=== PATIENT | female | born 1990 | race African-American/Black ===

== ENCOUNTER 2024-03-20 13:16 | Emergency (ER) | payer OTHER, SELFPAY ==
[2024-03-20 13:17] VITALS: BP 111/84
[2024-03-20 13:54] VITALS: BMI 26.6
--- NOTE | 2024-03-20 14:02 | ED.GENMED ---
History of Present Illness
General
Chief Complaint: Fall
Time Seen by Provider: 03/20/24 13:29
History of Present Illness
History of Present Illness:
33-year-old female presents to the emergency department for evaluation of right muscular pain after a fall yesterday. States she was sitting in a chair at work when the chair suddenly broke, she fell onto her right side landing on her right hip and
knee. She was seen at [facility] yesterday where she had x-rays of the lumbar spine, right hip, right knee, and right elbow that were all unremarkable. She is reporting diffuse pain to all the after mentioned areas including the
thoracic back with frequent muscle spasms
Past History
Past History
ED Past Medical History: Other (Endometriosis, ectopic )
ED Past Surgical History: Gynecological (L fallopian tube removed ( tubel ),)
Social History
Tobacco: Non-smoker
Alcohol: Occasional
Drug: None
Personal: Other (fiancee)
Living: with family
Employment: Employed
Review of Systems
Review of Systems
Allergies reviewed?: Yes
All Other Systems: ROS reviewed and negative except as documented in HPI and ROS
Phy Exam
Physical Exam
Physical Exam:
GEN: Well appearing, NAD, WDWN
HEENT: Oral mucosa moist, no scleral icterus
Cardiac: Regular rate
Lung: No respiratory distress, no tachypnea
MSK: No gross deformity or injuries. The patient has widespread muscular tenderness to the cervical, thoracic, and lumbar paraspinous musculature. She has unrestricted range of motion of bilateral upper and lower extremities in all rodriguez of motion
Skin: Good color, no pallor or jaundice, no rashes
Neuro: AO x3, moves all extremities freely
Psych: Calm, cooperative
Course
Vital Signs
Initial and Last Documented VS:
Initial Vital Signs
Temp Pulse Resp BP Pulse Ox
98.2 F 79 18 111/84 100
03/20/24 13:17 03/20/24 13:17 03/20/24 13:17 03/20/24 13:17 03/20/24 13:17
Last Documented Vital Signs
Temp Pulse Resp BP Pulse Ox
98.0 F 81 18 118/80 99
03/20/24 14:16 03/20/24 14:16 03/20/24 14:16 03/20/24 14:16 03/20/24 14:16
MDM/Problems Addressed
MDM/Problems Addressed:
I was able to confirm negative x-ray report to [facility] yesterday. Likely soft tissue injuries, discussed supportive care with the patient, no indication for repeat imaging
*Critical Care Note
Total Time (30-74mins, 75-104mins- exclusive of procedures): Not Applicable
ED Attending Note
-
Portions of this chart may have been created with voice recognition software.� Occasional wrong word or��sound alike� substitutions may have occurred due to the inherent limitations of voice recognition software.
Discharge Plan
Departure
Patient Disposition: Home (Routine Discharge)
Date of Disposition: 03/20/24
Time of Disposition: 14:02
Patient with high blood pressure during this ER visit?: No
Discharge Problem:
Myalgia
Instructions: Low Back Pain ED, Muscle Strain ED
Prescriptions:
New
diclofenac sodium 75 mg tablet,delayed release (DR/EC)
75 mg PO BID Qty: 20 0RF
methocarbamol 750 mg tablet
750 - 1,500 mg PO Q8H PRN (Reason: muscle spasm) Qty: 20 0RF
No Action
ferrous sulfate [iron] 325 mg (65 mg iron) Tablet
325 mg PO DAILY
docusate sodium [Colace] 100 mg Capsule
100 mg PO DAILY
28-800 mg-mcg Tablet
1 tab PO DAILY
Interventions
Interventions:
*Risk Screen - Suicide Last Done: 03/20/24 13:17
*General Assessment Last Done: 03/20/24 13:17
*Neglect/Abuse Screening Last Done: 03/20/24 13:17
ED- Fall Risk Assessment Last Done: 03/20/24 13:56
*ED COVID-19 Vaccine History Last Done: 03/20/24 13:17
*Nursing Disposition Last Done: 03/20/24 14:16
ED-Musculoskeletal Assessment Last Done: 03/20/24 14:14
ED- Neurological Assessment Last Done: 03/20/24 13:56
ED-Skin Assessment Last Done: 03/20/24 14:14
Discharge Date and Time
Discharge Date/Time: 03/20/24 14:18
Print Language: POLISH
[2024-03-20 14:16] VITALS: BP 118/80
== END 2024-03-20 14:18 | disposition home or self-care (01) ==
LOC: EMR 13:16
PROVIDERS: EMERGENCY PHYSICIAN Emergency Medicine; FAMILY PHYSICIAN Family Medicine
DX: M79.10 Myalgia, unspecified site (principal); W07.XXXA Fall from chair, initial encounter; Y99.0 Civilian activity done for income or pay
CPT/HCPCS: 99282